=== PATIENT | male | born 1940 | race Caucasian/White ===

== ENCOUNTER 2022-01-18 08:34 | Observation (INO) ==
[2022-01-18] MEDS ORDERED: Piperacillin/Tazobac ADVAN 3.375 GM in NS 0.9% 100 ml BAG 100 ML IV ONE (09:46)
[2022-01-18 10:51] LABS: ABS Eosinophils 0.1 10^3/ul (0-0.6); ABS Lymphocytes 0.4 10^3/ul (1.0-4.8); ABS Monocytes 0.8 10^3/ul (0-0.8); ABS Neutrophils 7.7 10^3/ul (1.5-7.7); Eosinophil % 0.6 %; Hematocrit 38 % (42-52); Hemoglobin 13.2 g/dL (14.0-18.0); Lymphocyte % 4.7 %; Mean Corpuscular HGB Conc 34 g/dL (31-36); Mean Corpuscular Hemoglobin 32 pg (27-31); Mean Corpuscular Volume 93 fL (80-94); Platelet Count 293 10^3/uL (150-450); Red Blood Count 4.12 10^6 /uL (4.18-5.48); Red Cell Distribution Width 13 % (10-15); White Blood Count 8.9 10^3/uL (3.5-10.8)
[2022-01-18 10:53] LABS: Venous Bicarbonate HCO3 24.8 mmol/L (24-28)
[2022-01-18 11:03] LABS: Activated Partial Thrombo Time 28.3 seconds (26.0-38.0); INR 1.06 (0.86-1.15)
[2022-01-18 11:11] LABS: Troponin I 0.02 ng/mL (<0.03)
[2022-01-18 11:34] LABS: Urine Appearance Clear; Urine Bilirubin Negative (Negative); Urine Blood 1+ (Negative); Urine Color Yellow; Urine Glucose Negative (Negative); Urine Ketones Negative (Negative); Urine Nitrite Negative (Negative); Urine Protein Negative (Negative); Urine Specific Gravity 1.012 (1.002-1.030); Urine Urobilinogen Negative (Negative)
[2022-01-18 11:40] LABS: TSH Ultra Thyroid Stim Horm 2.16 mcIU/mL (0.34-5.60)
[2022-01-18 11:42] LABS: Albumin 4.3 g/dL (3.2-5.2); Albumin/Globulin Ratio 1.4 (1-3); Calcium 9.2 mg/dL (8.6-10.3); Free T4 0.84 ng/dL (0.61-1.12); Globulin 3.1 g/dL (2-4); Magnesium 1.6 mg/dL (1.9-2.7); Potassium 4.2 mmol/L (3.5-5.0); Total Bilirubin 0.8 mg/dL (0.2-1.0); Total Protein 7.4 g/dL (6.4-8.9); Urine Bacteria Absent (Absent); Urine Red Blood Cell Trace(0-2/hpf) (Absent); Urine White Blood Cell Absent (Absent); eGFR CKD-EPI 55.2 (>60)
[2022-01-18] MEDS ORDERED: Magnesium Sulfate 2 gm BAG 2 GM/50 ML BAG IVPB ONE (12:22)
[2022-01-18 12:41] LABS: C Reactive Protein 55.65 mg/L (<8.01)
[2022-01-18 13:38] LABS: Uric Acid 4.4 mg/dL (4.4-7.6)
[2022-01-18 14:36] LABS: Erythrocyte Sed Rate 43 mm/Hr (0-19)
[2022-01-18] MEDS: Heparin 5000 UNITS/ML 1 mL VIAL SUBCUT SCH ×2 (15:38→23:06)
[2022-01-18] MEDS ORDERED: cefTRIAXone 1 gm/50 mL NS BAG 1 GM/50 ML BAG IVPB SCH (17:30)
[2022-01-19 04:56] LABS: ABS Eosinophils 0.2 10^3/ul (0-0.6); ABS Neutrophils 6.5 10^3/ul (1.5-7.7); Eosinophil % 1.9 %; Hematocrit 35 % (42-52); Hemoglobin 12.1 g/dL (14.0-18.0); Lymphocyte % 11.3 %; Mean Corpuscular HGB Conc 35 g/dL (31-36); Mean Corpuscular Hemoglobin 32 pg (27-31); Mean Corpuscular Volume 93 fL (80-94); Mean Platelet Volume 7.3 fL (7.4-10.4); Platelet Count 288 10^3/uL (150-450); Red Blood Count 3.72 10^6 /uL (4.18-5.48); Red Cell Distribution Width 13 % (10-15); White Blood Count 8.6 10^3/uL (3.5-10.8)
[2022-01-19 05:05] LABS: Calcium 8.8 mg/dL (8.6-10.3); Potassium 4.1 mmol/L (3.5-5.0); eGFR CKD-EPI 59.6 (>60)
[2022-01-19] MEDS: Heparin 5000 UNITS/ML 1 mL VIAL SUBCUT SCH (06:03)
[2022-01-19 07:44] VITALS: BP 121/59
[2022-01-19] MEDS ORDERED: Enoxaparin 40 MG/0.4 ML SYR SUBCUT SCH (14:00)
== END 2022-01-19 10:45 | disposition home or self-care (01) ==
LOC: EDHOLD 08:34 → ED 08:34 → EDHOLD 16:47 → MED 17:34
PROVIDERS: ADMIT Hospitalist; ATTEND Hospitalist